=== PATIENT | female | born 1970 | race Caucasian/White ===

== ENCOUNTER 2024-09-24 09:32 | Emergency (ER) | payer MEDICAID, SELFPAY ==
--- NOTE | ~2024-09-24 | XR_ITS ---
XR forearm RT 2V Ordering provider: Larry Johnson MD History: . cat bite pain . Comparison: None. FINDINGS: BONES: No acute fracture or dislocation. JOINT SPACES: Normal. SOFT TISSUES: Normal. IMPRESSION: No acute osseous abnormality right forearm. Reviewed, dictated and finalized at location A.
--- NOTE | ~2024-09-24 | XR_ITS ---
XR elbow RT min 3V Ordering provider: Larry Johnosn MD History: . cat bite pain several puncture wounds to hand and forearm . Comparison: None. FINDINGS: BONES: No acute fracture or dislocation. JOINT SPACES: Normal. SOFT TISSUES: Unremarkable. No definite joint effusion. IMPRESSION: No acute osseous abnormality of the right elbow. Reviewed, dictated and finalized at location A.
[2024-09-24 09:32] VITALS: BP 136/70; PULSE 95; RESP 18; TEMP 36.2; O2SAT 97
--- NOTE | 2024-09-24 09:40 | ED.GENADULT ---
HPI - General Adult General Chief complaint: Animal Bite Stated complaint: cat bite Time Seen by Provider: 09/24/24 09:40 History of Present Illness HPI narrative: 54-year-old white female joint to break up a cat fight has puncture wounds to her thigh and her right forearm also complains of bilateral ear congestion and sinus congestion. patient history the CT the cat attacked her scratching her legs hands biting or hands and right thigh and forearm. Tetanus immunization given to patient. Patient is complaining of right elbow and forearm pain. Denies any numbness or loss of function. She is walking talking seeing and hearing okay she has had a little bit of a nonproductive cough postnasal drip and sometimes of runny nose. She complains of sinus congestion pain in her face over sinuses and congestion in her ears. She feels like there is fluid behind her left ear. Denies any other injuries any other bleeding or bruising lumps or bumps or swelling, numbness or weakness dizziness or lightheadedness or any other complaints. Related Data Allergies Allergy/AdvReac Type Severity Reaction Status Date / Time No Known Allergies Allergy Verified 09/24/24 09:40 Review of Systems Review of Systems: All systems reviewed & are unremarkable except as noted in HPI and below PMFSH Comments Past medical history anxiety depression Exam Narrative: White female patient with mild distress.? Head normocephalic, atraumatic,. Patient has facial tenderness over sinuses.? Eyes conjunctiva pink sclera nonicteric.? Extraocular movements are intact.? Ears externally normal. right canal cerumen impaction left canal. Tympanic membrane looks little inflamed. ?Oropharynx is clear with moist mucous membranes without exudates.? Neck is supple nontender no lymphadenopathy.? Back is nontender.? Lungs are clear.? Heart is regular rate and rhythm without murmurs gallops or rubs.? Chest wall nontender. Abdomen is soft and nontender no hepatosplenomegaly or masses no CVA tenderness no abdominal bruits.? Extremities : She has several puncture wounds or right forearm and both hands scratches on her legs and puncture wounds on her right thigh are mildly tender. She has no cyanosis clubbing or edema.? Skin is warm and dry without rashes or lesions.? Neurological patient is alert and oriented x4.? Motor and sensory grossly intact.? Gait is normal. Course Vital Signs Vital signs: Vital Signs Temperature 36.2 C L 03/18/25 09:32 Pulse Rate 95 09/24/24 09:32 Respiratory Rate 18 09/24/24 09:32 Blood Pressure 136/70 09/24/24 09:32 Pulse Oximetry 97 09/24/24 09:32 Oxygen Delivery Room Air 09/24/24 09:32 Temperature 36.2 C L 09/24/24 09:32 Pulse Rate 65 09/24/24 11:49 Respiratory Rate 14 09/24/24 11:49 Blood Pressure 118/71 09/24/24 11:49 Pulse Oximetry 99 09/24/24 11:49 Oxygen Delivery Room Air 09/24/24 11:49 Medical Decision Making MDM Narrative Medical decision making narrative: Patient placed in room: Seven with her ? History and physical was performed. x-ray of the right elbow and forearm bones showed no active disease per radiologist Independent Historian: External Source Review: Differential Dx includes but not limited to: sinusitis cat bite fracture dislocation Medications were Reviewed: home meds reviewed Medications given: Steri-Strips to right forearm cat bite. Tdap Toradol 30 Independently Interpreted by me: Shared decision Making: evaluation was discussed all questions were asked and answered patient agreed plan. She will take Augmentin twice a day for 10 days. She would return if she got any signs of infection. She took Tylenol and or ibuprofen for pain. Tylenol ibuprofen for pain Augmentin 875 twice a day for 10 days Claritin 10 mg pvlz-kaf-rcoptqk for 10 days, use ear wax removal kit after 3 days of putting mineral oil or baby oil in the right ear canal overnight. Social Situation Impacting Patients Care: Discussed with Dr. BROWN DIAGNOSIS: cat bite to extremities, URI, cerumen impaction DISPOSITION : discharged home stable CONDITION AT DISCHARGE: Stable Vital Signs Vital Signs: Vital Signs Temperature 36.2 C L 09/24/24 09:32 Pulse Rate 95 09/24/24 09:32 Respiratory Rate 18 09/24/24 09:32 Blood Pressure 136/70 09/24/24 09:32 Pulse Oximetry 97 09/24/24 09:32 Oxygen Delivery Room Air 09/24/24 09:32 Temperature 36.2 C L 09/24/24 09:32 Pulse Rate 65 09/24/24 11:49 Respiratory Rate 14 09/24/24 11:49 Blood Pressure 118/71 09/24/24 11:49 Pulse Oximetry 99 09/24/24 11:49 Oxygen Delivery Room Air 09/24/24 11:49 Discharge Plan Discharge Clinical Impression: Cat bite involving extremity, Acute upper respiratory infection Cerumen impaction Qualifiers: Laterality: right Qualified Code(s): H61.21 - Impacted cerumen, right ear Patient Disposition: Home, Self-Care Condition: Stable Instructions: Antibiotic Form, Animal Bite (ED), Upper Respiratory Infection (ED) Additional Instructions: Augmentin 875 twice a day for 10 days. Claritin 10 mg [id number]-jtw-wsjyoyr once a day for 10 days. Follow-up with your primary care provider. Use baby while mineral oil in the right ear canal at night as discussed the next 3 nights and then get an nnqh-swp-hnmhlow ear wash kit and use or have your primary care provider rinse out your ear canal. return if you get worse or develops any new symptoms. Patient Language: Trinidadian Prescriptions: New amoxicillin-pot clavulanate 875-125 mg tablet 1 tablet PO Q12H 10 Days Qty: 20 0RF Follow-up/Referrals: UNKNOWN,DOCTOR [Primary Care Provider] - Time of Disposition: 11:50
[2024-09-24] MEDS: TETANUS,DIPHTHERIA,AC PERTUSSIS ADULT 0.5 ML (ADACEL) IM (10:07)
--- OUTSIDE RECORDS SUMMARY | 2024-09-24 10:31 | XMS_ITS | Clinical Summary ---
Author Organization [facility] Address [address] [place] [address] Phone Care Team Providers Care Hose Sprayer Name Role Phone Carlos Alberto Rodriguez MD Unavailable Provider, None Primary Care Provider Unavailabl e Allergies No known active allergies Medications Fluticasone Propionate (FLONASE NA) by Nasal route. Active OMEPRAZOLE PO Take by mouth. Active vitamin D (CHOLECALCIFEROL ) 1000 UNIT Tablet Take 1,000 Units by mouth. Active albuterol 108 (90 Base) MCG/ACT Aerosol Solution take 2 Puffs by inhalation. Active FLUoxetine (PROZAC) 40 MG Capsule TAKE 2 CAPSULES BY MOUTH DAILY 90 Cap 1 9 Active traZODone (DESYREL) 50 MG Tablet 50 mg. 0 Active LATUDA 20 MG Tablet 20 mg. 0 Active hydrOXYzine (VISTARIL) 25 MG Capsule Take 25 mg by mouth. Active prazosin (MINIPRESS) 2 MG Capsule 2 mg. 0 Active nabumetone (RELAFEN) 500 MG Tablet TAKE 1 TABLET BY MOUTH TWICE DAILY FOR 15 DAYS 30 Tab 0 Active tiZANidine (ZANAFLEX) 2 MG Tablet TAKE 2 TABLETS BY MOUTH THREE TIMES DAILY 60 Tab 0 Active clonazePAM (KlonoPIN) 0.5 MG TabletIndication s:Anxiety and depression,Sacro iliac dysfunction,Troc hanteric bursitis of both hips,Arthralgia, unspecified joint Take 1 Tab by mouth nightly. 30 Tab 0 Active Active Problems Problem Noted Date Diagnosed Date Chronic constipation 08/09/2018 Mild intermittent asthma without complication Tobacco abuse 08/09/2018 Obesity (BMI 30-39.9) 08/09/2018 Anxiety and depression Endometriosis Trichotillomania Family History Medical History Relation Name Comments Diabetes Maternal Grandfather Heart Disease Maternal Grandfather Stomach Cancer Maternal Grandmother Stomach Cancer Maternal Uncle Aneurysm Mother Relation Name Status Comments Maternal Grandfather Maternal Grandmother Maternal Uncle Mother Social History Tobacco Use Types Packs/Day Years Used Date Smoking Tobacco: Every Day Cigarettes Smokeless Tobacco: Never Tobacco Cessation:Ready to Q uit: No; Counseling Given: Yes Alcohol Use Standard Drinks/Week Comments Yes 0 (1 standard drink = 0.6 oz pur e alcohol) occasional PHQ-2 Answer Date Recorded Total Score - Questions 1-9 0 12/09 Comments Unknown Sex and Gender Information Value Date Recorded Sex Assigned at Not on file Legal Sex Female 9:49 AM CDT Gender Identity Not on file Sexual Orientation Not on file Last Filed Vital Signs Vital Sign Reading Time Taken Comments Blood Pressure 104/70 07/04/2019 8:43 AM HIGH PRESSURE CLEANER Pulse 82 07/04/2019 8:43 AM HIGH PRESSURE CLEANER Temperature - - Respiratory Rate - - Oxygen Saturation 97% 07/04/2019 8:43 AM HIGH PRESSURE CLEANER Inhaled Oxygen Concentration - - Weight 89.8 kg (198 lb) 07/04/2019 8:43 AM HIGH PRESSURE CLEANER Height 165.1 cm (5' 5 ) 02/07/2019 12:13 PM CDT Body Mass Index 32.95 02/07/2019 12:13 PM CDT Plan of Treatment Health Maintenance Due Date Last Done Comments Hepatitis C Virus (HCV) Screening 1970 TdaP Immunization 1970 Pneumococcal Immunization Co mbined (1 of 2 - PCV) 1976 Hepatitis B Immunization (1 of 3 - 19+ 3-dose series) 1989 Pneumococcal Immunization (5 0+ years) (1 of 2 - PCV) 1989 Pap Smear 1991 Cervical Cancer Screening (CCS) 2000 HPV/Cotest 2000 Colonoscopy 2015 Colorectal Cancer Screening 2015 Cologuard 2020 Immunochemical Fecal Occult Blood 2020 Zoster Immunization (1 of 2) 2020 Influenza Immunization (#1) 2024 04/06/2019 SARS-COV-2 Immunization ( - 2023- season) 2024 Respiratory Syncytial Virus (RSV) Immunization (Adult) (1 - 1-dose 75+ series) 2045 Discussion re Starting/Frequ ency of Mammograms Discontinued 08/17/2018 Mammogram Discontinued 08/17/2018 Meningococcal Immunization (ACWY) Aged Out No longer eligible based on patient's age to complete this topic Rotavirus Immunization Aged Out No lo nger eligible based on patient's age to complete this topic Procedures Procedure Name Priority Date/Time Associated Diagnosis Comments [facility] DIAG BILATERAL DIGITAL W CAD W KATTY Routine 08/17/2018 10:14 AM HIGH PRESSURE CLEANER Breast pain, right from Last 3 Months or Most Recently Relevant to Health Maintenance Results * [facility] DIAG BILATERAL DIGITAL W CAD W KATTY (08/17/2018 10:14 AM HIGH PRESSURE CLEANER) Anatomical Region Laterality Modality breast Bilateral Mammography 08/17/2018 10:5 4 AM HIGH PRESSURE CLEANER Narrative 08/20/2018 4:28 PM HIGH PRESSURE CLEANER ORDERING PHYSICIAN Edward Ramirez MD DATE AND TIME OF DICTATION RADIOLOGIST 08/17/2018 10:54:24 Terra Michel MD EXAM DESCRIPTION EXAMINATION Diagnostic bilateral digital mammogram with CAD and tomosynthesis. HISTORY A 48-year-old female presenting right breast tenderness. TECHNIQUE Full field CC and MLO views of both breasts were obtained with CAD over-read. In addition, tomosynthesis of the right breast was performed in the CC and MLO projections. COMPARISON None available. FINDINGS There is fatty replacement of the glandular tissue. No suspicious mass, grouping of calcifications, or architectural distortion. There is no skin thickening or nipple retraction. No abnormality is seen on the tomosynthesis views. ASSESSMENT BI-RADS 0, incomplete. RECOMMENDATIONS The patient will undergo a targeted ultrasound of the right breast for further evaluation. Please refer to the ultrasound report for final recommendations. DICTATED BY: Terra Michel MD DD/MODL /[id number] Edward Ramirez MD IMG MAMMO ORDERABLES Final R esult from Last 3 Months or Most Recently Relevant to Health Maintenance Insurance MEDICAID [employer] Care Teams Hose Sprayer Relationship Specialty Start Date End Date Provider, None [place] PCP - General 05/19/20 Carlos Alberto Rodriguez MD [address] [address] Consulting Physician General Surgery 08/17/18
--- OUTSIDE RECORDS SUMMARY | 2024-09-24 10:31 | XMS_ITS | Encounter Summary ---
Author Organization [facility] Address [address] [place] [address] Phone Care Team Providers Care Parts Cleaner Name Role Phone Carlos Alberto Rodriguez MD Unavailable Yeni Kennedy MD Primary Care Provider [phone] Provider, None Primary Care Provider Unavailabl e Reason for Visit * Reason Comments Medication Refill Encounter Details Date Type Department Care Team ([facility] Contact Info) Description 10/31/2019 Refill [facility] [address] [place] [address] Yeni Kennedy MD [address] [place] [address] Medication Refill Social History Tobacco Use Types Packs/Day Years Used Date Smoking Tobacco: Every Day Cigarettes Smokeless Tobacco: Never Alcohol Use Standard Drinks/Week Comments Yes 0 (1 standard drink = 0.6 oz pur e alcohol) occasional PHQ-2 Answer Date Recorded PHQ-2 Score 0 07/04/2019 Comments Unknown Sex and Gender Information Value Date Recorded Sex Assigned at Not on file Legal Sex Female 9:49 AM CDT Gender Identity Not on file Sexual Orientation Not on file COVID-19 Exposure Response Date Recorded In the last month, have you been in contact with someone who was confirmed or suspected to have Coronavirus / COVID-19? Yes 10/02/2019 9:05 AM CDT documented as of this encounter Miscellaneous Notes * Telephone Encounter - Jennifer Russell MA - 10/31/2019 10:08 AM CDT Requested Prescriptions Pending Prescriptions Disp Refills ??? naproxen (NAPROSYN) 500 MG Tablet [Pharmacy Med Name: NAPROXEN 500MG TABLETS] 60 Tab 1 Sig: TAKE 1 TABLET BY MOUTH TWICE DAILY WITH MEALS documented in this encounter Plan of Treatment Not on file documented as of this encounter Visit Diagnoses Not on filedocumented in this encounter Additional Health Concerns Assessment Noted Time PHQ-9 Depression Total Score: 0 07/04/20 19 8:00 AM [employer] WORK[employer] documented as of this encounter Care Teams Parts Cleaner Relationship Specialty Start Date End Date Yeni Kennedy MD [address] [place] [address] PCP - General Family Medicine 11/05/18 05/18/20 Provider, None [place] PCP - General 05/19/20 Carlos Alberto Rodriguez MD [address] [place] [address] [address] [place] [address] [id number] Consulting Physician General Surgery 08/17/18 documented as of this encounter
--- OUTSIDE RECORDS SUMMARY | 2024-09-24 10:31 | XMS_ITS | Encounter Summary ---
Author Organization [facility] Address [address] [place] [address] Phone Care Team Providers Care Typist Name Role Phone Carlos Alberto Rodriguez MD Unavailable Yeni Kennedy MD Primary Care Provider [phone] Provider, None Primary Care Provider Unavailabl e Reason for Visit * Reason Comments Medication Refill Encounter Details Date Type Department Care Team ([facility] Contact Info) Description 03/19/2020 Refill [facility] [address] [place] [address] Yeni Kennedy MD [address] [place] [address] Medication Refill Social History Tobacco [...] on file Sexual Orientation Not on file documented as of this encounter Miscellaneous Notes * Telephone Encounter - Jennifer Russell MA - 03/19/2020 10:57 AM CDT Requested Prescriptions Pending Prescriptions Disp Refills ??? tiZANidine (ZANAFLEX) 2 MG Tablet [Pharmacy Med Name: TIZANIDINE 2MG TABLETS] 60 Tab 0 Sig: TAKE 2 TABLETS BY MOUTH THREE TIMES DAILY documented in this encounter Plan of Treatment Not on file documented as of this encounter Visit Diagnoses Not on filedocumented in this encounter Additional Health Concerns Assessment Noted Time PHQ-9 Depression Total Score: 0 12/31/19 20 10:00 AM CDT documented as of this encounter Care Teams Typist Relationship Specialty Start Date End Date Yeni Kennedy MD [address] [place] [address] PCP - General Family Medicine 11/05/18 05/18/20 Provider, None [place] PCP - General 05/19/20 Carlos Alberto Rodriguez MD [address] [place] [address] Consulting Physician General Surgery 08/17/18 documented as of this encounter
--- OUTSIDE RECORDS SUMMARY | 2024-09-24 10:31 | XMS_ITS | Encounter Summary ---
Author Organization [facility] Address [address] [place] [address] Phone Care Team Providers Care Fish Dressing Machine Feeder Name Role Phone Carlos Alberto Rodriguez MD Unavailable Yeni Kennedy MD Primary Care Provider [phone] Provider, None Primary Care Provider Unavailabl e Reason for Visit * Reason Comments Medication Refill Encounter Details Date Type Department Care Team ([facility] Contact Info) Description 03/16/2020 Refill [facility] [address] [place] [address] Yeni Kennedy MD [address] [place] [address] Medication Refill Social History Tobacco [...] Telephone Encounter - Jennifer Russell MA - 03/17/2020 8:37 AM CDT Requested Prescriptions Pending Prescriptions Disp Refills ??? nabumetone (RELAFEN) 500 MG Tablet [Pharmacy Med Name: NABUMETONE 500MG TABLETS] 30 Tab 0 Sig: TAKE 1 TABLET BY MOUTH TWICE DAILY FOR 15 DAYS documented in this encounter Plan of Treatment Not on file documented as of this encounter Visit Diagnoses Not on filedocumented in this encounter Additional Health Concerns Assessment Noted Time PHQ-9 Depression Total Score: 0 12/31/19 20 10:00 AM CDT documented as of this encounter Care Teams Fish Dressing Machine Feeder Relationship Specialty Start Date End Date Yeni Kennedy MD [address] [place] [address] PCP - General Family Medicine 11/05/18 05/18/20 Provider, None [place] PCP - General 05/19/20 Carlos Alberto Rodriguez MD [address] [place] [address] Consulting Physician General Surgery 08/17/18 documented as of this encounter
--- OUTSIDE RECORDS SUMMARY | 2024-09-24 10:31 | XMS_ITS | Encounter Summary ---
Author Organization [facility] Address [address] [place] [address] Phone Care Team Providers Care Pricing Analyst Name Role Phone Carlos Alberto Rodriguez MD Unavailable Yeni Kennedy MD Primary Care Provider [phone] Provider, None Primary Care Provider Unavailabl e Reason for Visit * Reason Comments Medication Refill Encounter Details Date Type Department Care Team ([facility] Contact Info) Description 12/28/2019 Refill [facility] [address] [place] [address] Yeni Kennedy MD [address] [place] [address] Medication Refill Social History Tobacco [...] or suspected to have Coronavirus / COVID-19? No / Unsure 12/30/2019 9:54 AM CDT documented as of this encounter Miscellaneous Notes * Telephone Encounter - Justice, Jennifer I, MA - 12/30/2019 8:32 AM CDT Requested Prescriptions Pending Prescriptions Disp [...] Total Score: 0 07/04/20 19 8:00 AM CAR HIKER documented as of this encounter Care Teams Pricing Analyst Relationship Specialty Start Date End Date Yeni Kennedy MD [address] [place], [place] [id number] PCP - General Family Medicine 11/05/18 05/18/20 Provider, None [place] PCP - General 05/19/20 Carlos Alberto Rodriguez MD [address] [place] [address] Consulting Physician General Surgery 08/17/18 documented as of this encounter
--- OUTSIDE RECORDS SUMMARY | 2024-09-24 10:31 | XMS_ITS | Clinical Summary ---
Author Organization [facility] Address [address] [place] [address] Care Team Providers Care Knot Picker Cloth Name Role Phone None, Provider MD Primary Care Provider Unavaila ble Allergies No known active allergies Medications naproxen 500 MG tablet Take 500 mg by mouth 2 (two) times daily as needed. Active clonazePAM 0.5 MG tablet Take 0.25-0.5 mg by mouth daily as needed. 05/28/2019 Active trazodone 50 MG tablet Take 25 mg by mouth nightly as needed for Sleep. Active hydrOXYzine 25 MG capsule Take 25 mg by mouth 3 (three) times daily as needed for Anxiety. Active clonazePAM (KLONOPIN) 0.5 MG tabletIndicatio ns:MDD (major depressive disorder) Take 1 tablet (0.5 mg total) by mouth 2 (two) times daily as needed for Anxiety. 30 tablet 02/27/2024 Active Active Problems Problem Noted Date Diagnosed Date MDD (major depressive disorder) 03/29/2019 Immunizations Name Administration Dates Next Due Afluria 36 MONTHS+ (Prefilled Syringe IIV4) 03/11 Family History Medical History Relation Comments Depression Mother Relation Status Comments Mother Social History Tobacco Use Types Packs/Day Years Used Date Smoking Tobacco: Every Day Cigarettes Smokeless Tobacco: Never Alcohol Use Standard Drinks/Week Comments Yes 0 (1 standard drink = 0.6 oz pur e alcohol) socially Comments No Sex and Gender Information Value Date Recorded Sex Assigned at Not on file Legal Sex Female 5:11 PM CDT Gender Identity Not on file Sexual Orientation Not on file Last Filed Vital Signs Vital Sign Reading Time Taken Comments Blood Pressure 118/75 05/01/2024 3:00 PM CDT Pulse 80 05/01/2024 3:00 PM CDT Temperature 36.9 C (98.4 F) 05/01/2024 10:23 AM CDT Respiratory Rate 16 05/01/2024 3:00 PM CDT Oxygen Saturation 99% 05/01/2024 3:00 PM CDT Inhaled Oxygen Concentration - - Weight 81.6 kg (180 lb) 05/01/2024 10:23 AM CDT Height 165.1 cm (5' 5 ) 05/01/2024 10:23 AM CDT Body Mass Index 29.95 05/01/2024 10:23 AM CDT Plan of Treatment Health Maintenance Due Date Last Done Comments Cervical Cancer Screening Pa p Smear (Age 30 to 64) Every 3 Years 1970 Colorectal Cancer Screening Colonoscopy (10 Years) 1970 Annual Physical 1973 Pneumococcal Vaccine: Pediat rics (0 to 5 Years) and At-Risk Patients (6 to 64 Years) (1 of 2 - PCV) 1976 Hepatitis C 1988 DTaP, Tdap and Td Vaccines ( 1 - Tdap) 1989 Hepatitis B Vaccines (1 of 3 - 19+ 3-dose series) 1989 Cervical Cancer Screening Pa p with HPV Testing (Age 30 to 64) Every 5 Years 2000 Cervical Cancer Screening with HPV 2000 Zoster Vaccines (1 of 2) 2020 Mammogram Screening 08/17/2020 08/17/2018 COVID-19 Vaccine (1 - 2023-2 5 season) 2024 Influenza Adult (#1) 2024 04/06/2019 Meningococcal B Vaccine Aged Out No l onger eligible based on patient's age to complete this topic Meningococcal Vaccine Aged Out No geoff alejandra eligible based on patient's age to complete this topic RSV Immunizations Under 20 Months Aged Out No longer eligible based on patient's age to complete this topic Insurance MEDICAID Advance Directives * Full Code (Latest Code Status on File) Date Activated Date Inactivated Comments 03/29/2019 8:49 PM 04/08/2019 1:39 PM Care Teams Knot Picker Cloth Relationship Specialty Start Date End Date None, Provider, MD PCP - General UNKNOWN PHYSICIAN SPECIALTY 05/01/24
--- OUTSIDE RECORDS SUMMARY | 2024-09-24 10:31 | XMS_ITS | Encounter Summary ---
Author Organization [facility] Address [address] [place] [address] Phone Care Team Providers Care Log Driver Name Role Phone Carlos Alberto Rodriguez MD Unavailable Yeni Kennedy MD Primary Care Provider [phone] Provider, None Primary Care Provider Unavailabl e Reason for Visit * Reason Comments Medication Refill Encounter Details Date Type Department Care Team ([facility] st Contact Info) Description 10/31/2019 Refill [facility] [address] [place] [address] Mulu Gonzalez, GEENA, PANEL EDGE PAINTER [address] [place] [address] Medication Refill Social History Tobacco Use Types [...] Encounter - Jennifer Russell MA - 10/31/2019 12:38 PM CDT Is this ok to refill? documented in this encounter Plan of Treatment Not on file documented as of this encounter Visit Diagnoses Diagnosis Sacroiliac dysfunction Disorders of sacrum Trochanteric bursitis of both hips Enthesopathy of hip region Arthralgia, unspecified joint documented in this encounter Additional Health Concerns Assessment Noted Time PHQ-9 Depression Total Score: 0 07/04/20 19 8:00 AM BULK SAUSAGE CASING TIER OFF documented as of this encounter Care Teams Log Driver Relationship Specialty Start Date End Date Yeni Kennedy MD [address] [place], [place] [phone] PCP - General Family Medicine 11/05/18 05/18/20 Provider, None [place] PCP - General 05/19/20 Carlos Alberto Rodriguez MD [address] [place] [id number] Consulting Physician General Surgery 08/17/18 documented as of this encounter
--- OUTSIDE RECORDS SUMMARY | 2024-09-24 10:31 | XMS_ITS | Encounter Summary ---
Author Organization [facility] Address [address] [place] [address] Phone Care Team Providers Care Manager House Name Role Phone Carlos Alberto Rodriguez MD Unavailable Yeni Kennedy MD Primary Care Provider [phone] Provider, None Primary Care Provider Unavailabl e Reason for Visit * Reason Comments Medication Refill Encounter Details Date Type Department Care Team ([facility] Contact Info) Description 02/02/2020 Refill [facility] FAMILY MEDICINE [address] [place] [address] Yeni Kennedy MD [address] [place] [address] Medication Refill Social History Tobacco [...] Telephone Encounter - Jennifer Russell MA - 02/03/2020 8:00 AM CDT Requested Prescriptions Pending Prescriptions Disp Refills ??? nabumetone (RELAFEN) 500 MG Tablet [Pharmacy Med Name: NABUMETONE 500MG TABLETS] 30 Tab 0 Sig: TAKE 1 TABLET BY MOUTH TWICE DAILY FOR 15 DAYS ??? tiZANidine (ZANAFLEX) 2 MG Tablet [Pharmacy [...] documented as of this encounter Care Teams Manager House Relationship Specialty Start Date End Date Yeni Kennedy MD [address] [place] [address] PCP - General Family Medicine 11/05/18 05/18/20 Provider, None [place] PCP - General 05/19/20 Carlos Alberto Rodriguez MD [address] [place] [address] Consulting Physician General Surgery 08/17/18 documented as of this encounter
--- OUTSIDE RECORDS SUMMARY | 2024-09-24 10:32 | XMS_ITS | Clinical Summary ---
Author Organization [facility] Address [address] [place] [address] Care Team Providers Care Art Teacher Name Role Phone Unavailable Primary Care Provider Unavailabl e Source Comments PLEASE NOTE, if this patient is a minor, it may be UNLAWFUL to discuss sensitive information that is contained in these records (such as FAMILY PLANNING, MENTAL HEALTH or SUBSTANCE ABUSE) with the minor patient's parent or other person without the patient's specific authorization.[facility] Allergies No known active allergies Medications ibuprofen (ADVIL,MOTRIN) 200 mg tablet Take 800 mg by mouth 2 (two) times daily Active FLUoxetine (PROZAC) 40 mg capsule TK 2 CS PO D 2 02/21/2017 Active hydrOXYzine HCl (ATARAX) 50 mg tablet TK 1 T PO PRN 2 02/21/2017 Active methylPREDNIsol one (MEDROL DOSPACK) 4 mg tablet packIndications :Pain in joint, multiple sites Follow package directions. 1 Packet 03/27/2017 Active Active Problems Problem Noted Date Diagnosed Date Tendonitis of ankle or foot 03/28/2017 Social History Tobacco Use Types Packs/Day Years Used Date Smoking Tobacco: Every Day Cigarettes Smokeless Tobacco: Never Alcohol Use Standard Drinks/Week Comments Yes 0 (1 standard drink = 0.6 oz pur e alcohol) occasional Social Connections Answer Date Recorded Social Connections and Isolation 0 03/03/2019 Financial Resource Strain Answer Date R ecorded Financial Resource Strain 0 2018 Stress Answer Date Recorded Stress 0 03/03/2019 Physical Activity Answer Date Recorded Physical Activity 0 03/03/2019 Food Insecurity Answer Date Recorded Food 0 03/03/2019 Transportation Needs Answer Date Record ed Transportation 0 03/03/2019 Housing Stability Answer Date Recorded Housing 0 03/03/2019 Safety and Environment Answer Date Nj rded Safety 0 03/03/2019 Utilities Answer Date Recorded Utilities 0 03/03/2019 Employment Answer Date Recorded Employment 0 03/03/2019 Comments No Sex and Gender Information Value Date Recorded Sex Assigned at Not on file Legal Sex Female 6:55 PM PDT Gender Identity Not on file Sexual Orientation Not on file Last Filed Vital Signs Vital Sign Reading Time Taken Comments Blood Pressure 108/72 03/27/2017 7:27 PM PDT Pulse 61 03/27/2017 7:27 PM PDT Temperature 36.9 C (98.4 F) 03/27/2017 7:27 PM PDT Respiratory Rate - - Oxygen Saturation - - Inhaled Oxygen Concentration - - Weight - - Height 165.1 cm (5' 5 ) 03/27/2017 7:27 PM PDT Body Mass Index - - Plan of Treatment Not on file
[2024-09-24] MEDS: KETOROLAC 30 MG/ML VIAL (*BKC) IM (11:00)
--- OUTSIDE RECORDS SUMMARY | 2024-09-24 11:18 | XMS_ITS | Clinical Summary ---
Author Organization [facility] Address [address] [place] [address] Care Team Providers Care Storage Specialist Name Role Phone Unavailable Primary Care Provider [...]
--- OUTSIDE RECORDS SUMMARY | 2024-09-24 11:18 | XMS_ITS | Encounter Summary ---
Author Organization [facility] Address [address] [place] [address] Phone Care Team Providers Care Real Estate Office Supervisor Name Role Phone Carlos Alberto Rodriguez MD Unavailable Yeni Kennedy MD Primary Care Provider [phone] Provider, None Primary Care Provider Unavailabl e Reason for Visit * Reason Comments Medication Refill Encounter Details Date Type Department Care Team ([facility] Contact Info) Description 12/28/2019 Refill [facility] FAMILY MEDICINE [address] [place] [address] Yeni Kennedy MD [address] [place] [address] Medication Refill Social History Tobacco [...] Total Score: 0 07/04/20 19 8:00 AM MARKETING DATABASE COORDINATOR documented as of this encounter Care Teams Real Estate Office Supervisor Relationship Specialty Start Date End Date Yeni Kennedy MD [address] [place], [place] [id number] PCP - General Family Medicine 11/05/18 05/18/20 Provider, None [place] PCP - General 05/19/20 Carlos Alberto Rodriguez MD [address] [place] [address] Consulting Physician General Surgery 08/17/18 documented as of this encounter
--- OUTSIDE RECORDS SUMMARY | 2024-09-24 11:18 | XMS_ITS | Encounter Summary ---
Author Organization [facility] Address [address] [place] [address] Phone Care Team Providers Care Chief Science Officer Name Role Phone Carlos Alberto Rodriguez MD Unavailable Yeni Kennedy MD Primary Care Provider [phone] Provider, None Primary Care Provider Unavailabl e Reason for Visit * Reason Comments Medication Refill Encounter Details Date Type Department Care Team ([facility] Contact Info) Description 03/19/2020 Refill [facility] FAMILY MEDICINE [address] [place] [address] Yeni Kennedy MD [address] [place] [address] Medication Refill Social History Tobacco [...] documented as of this encounter Care Teams Chief Science Officer Relationship Specialty Start Date End Date Yeni Kennedy MD [address] [place] [address] PCP - General Family Medicine 11/05/18 05/18/20 Provider, None [place] PCP - General 05/19/20 Carlos Alberto Rodriguez MD [address] [address] [facility] [address] [place] [address] Consulting Physician General Surgery 08/17/18 documented as of this encounter
--- OUTSIDE RECORDS SUMMARY | 2024-09-24 11:18 | XMS_ITS | Encounter Summary ---
Author Organization [facility] Address [address] [place] [address] Phone Care Team Providers Care Dock Operations Supervisor Name Role Phone Carlos Alberto Rodriguez MD Unavailable Yeni Kennedy MD Primary Care Provider [phone] Provider, None Primary Care Provider Unavailabl e Reason for Visit * Reason Comments Medication Refill Encounter Details Date Type Department Care Team ([facility] Contact Info) Description 03/16/2020 Refill [facility] FAMILY MEDICINE [address] [place] [address] Yeni Kennedy MD [address] [place] [address] Medication Refill Social History Tobacco [...] documented as of this encounter Care Teams Dock Operations Supervisor Relationship Specialty Start Date End Date Yeni Kennedy MD [address] [place] [address] PCP - General Family Medicine 11/05/18 05/18/20 Provider, None [place] PCP - General 05/19/20 Carlos Alberto Rodriguez MD [address] [facility] [address] [place] [address] [place] [address] Consulting Physician General Surgery 08/17/18 documented as of this encounter
--- OUTSIDE RECORDS SUMMARY | 2024-09-24 11:18 | XMS_ITS | Clinical Summary ---
Author Organization [facility] Address [address] [place] [address] Care Team Providers Care Heavy Truck Driver Name Role Phone None, Provider MD Primary [...] 8:49 PM 04/08/2019 1:39 PM Care Teams Heavy Truck Driver Relationship Specialty Start Date End Date None, Provider, MD PCP - General UNKNOWN PHYSICIAN SPECIALTY 05/01/24
--- OUTSIDE RECORDS SUMMARY | 2024-09-24 11:18 | XMS_ITS | Clinical Summary ---
Author Organization [facility] Address [address] [address] Phone Care Team Providers Care Oil Pump Station Operator Chief Name Role Phone Carlos Alberto Rodriguez MD [...] Comments Blood Pressure 104/70 07/04/2019 8:43 AM RN TELEMETRY Pulse 82 07/04/2019 8:43 AM RN TELEMETRY Temperature - - Respiratory Rate - - Oxygen Saturation 97% 07/04/2019 8:43 AM RN TELEMETRY Inhaled Oxygen Concentration - - Weight 89.8 kg (198 lb) 07/04/2019 8:43 AM RN TELEMETRY Height 165.1 cm (5' 5 ) 02/07/2019 [...] Procedure Name Priority Date/Time Associated Diagnosis Comments [facility] BIL[facility]AL DIGITAL W CAD W KATTY Routine 08/17/2018 10:14 AM RN TELEMETRY Breast pain, right from Last 3 Months or Most Recently Relevant to Health Maintenance Results * [facility]IL[facility] DIGITAL W CAD W KATTY (08/17/2018 10:14 AM RN TELEMETRY) Anatomical Region Laterality Modality breast Bilateral Mammography 08/17/2018 10:5 4 AM RN TELEMETRY Narrative 08/20/2018 4:28 PM RN TELEMETRY ORDERING PHYSICIAN Edward Ramirez MD DATE AND [...] recommendations. DICTATED BY: Terra Michel MD DD/MODL /[id number] Edward Ramirez MD IMG MAMMO ORDERABLES Final R esult from Last 3 Months or Most Recently Relevant to Health Maintenance Insurance MEDICAID [employer] Care Teams Oil Pump Station Operator Chief Relationship Specialty Start Date End Date Provider, None [place] PCP - General 05/19/20 Carlos Alberto Rodriguez MD [address] [address] Consulting Physician General Surgery 08/17/18
--- OUTSIDE RECORDS SUMMARY | 2024-09-24 11:18 | XMS_ITS | Encounter Summary ---
Author Organization [facility] Address [address] [place] [address] Phone Care Team Providers Care Bean Roaster Name Role Phone Carlos Alberto Rodriguez MD Unavailable Yeni Kennedy MD Primary Care Provider [phone] Provider, None Primary Care Provider Unavailabl e Reason for Visit * Reason Comments Medication Refill Encounter Details Date Type Department Care Team ([facility] Contact Info) Description 10/31/2019 Refill [facility] FAMILY MEDICINE [address] [place] [address] Yeni Kennedy MD [address] [place] [address] Medication Refill Social History Tobacco [...] Total Score: 0 07/04/20 19 8:00 AM PRIMARY HEALTH CARE NURSE documented as of this encounter Care Teams Bean Roaster Relationship Specialty Start Date End Date Yeni Kennedy MD [address] [place] [address] PCP - General Family Medicine 11/05/18 05/18/20 Provider, None [place] PCP - General 05/19/20 Carlos Alberto Rodriguez MD [address] [place] [address] [address] [place] [id number] Consulting Physician General Surgery 08/17/18 documented as of this encounter
--- OUTSIDE RECORDS SUMMARY | 2024-09-24 11:18 | XMS_ITS | Encounter Summary ---
Author Organization [facility] Address [address] [place] [address] Phone Care Team Providers Care Slide Fastener Chain Assembler Name Role Phone Carlos Alberto Rodriguez MD Unavailable Yeni Kennedy MD Primary Care Provider [phone] Provider, None Primary Care Provider Unavailabl e Reason for Visit * Reason Comments Medication Refill Encounter Details Date Type Department Care Team ([facility] Contact Info) Description 02/02/[address] [facility] FAMILY MEDICINE [address] [place] [address] Yeni Kennedy MD [address] [place] [address] Medication Refill Social History Tobacco [...] documented as of this encounter Care Teams Slide Fastener Chain Assembler Relationship Specialty Start Date End Date Yeni Kennedy MD [address] [place] [address] PCP - General Family Medicine 11/05/18 05/18/20 Provider, None [place] PCP - General 05/19/20 Carlos Alberto Rodriguez MD [address] [place] [address] Consulting Physician General Surgery 08/17/18 documented as of this encounter
--- OUTSIDE RECORDS SUMMARY | 2024-09-24 11:18 | XMS_ITS | Encounter Summary ---
Author Organization [facility] Address [address] [place] [address] Phone Care Team Providers Care Grader Meat Name Role Phone Carlos Alberto Rodriguez MD Unavailable Yeni Kennedy MD Primary Care Provider [phone] Provider, None Primary Care Provider Unavailabl e Reason for Visit * Reason Comments Medication Refill Encounter Details Date Type Department Care Team ([facility] st Contact Info) Description 10/31/2019 Refill [facility] FAMILY MEDICINE [address] [place] [address] Mulu Gonzalez, GEENA, NAIL KEGGER [address] [place] [address] Medication Refill Social History Tobacco [...] Total Score: 0 07/04/20 19 8:00 AM NAPPING MACHINE OPERATOR documented as of this encounter Care Teams Grader Meat Relationship Specialty Start Date End Date Yeni Kennedy MD [address] [place], [place] [id number] PCP - General Family Medicine 11/05/18 05/18/20 Provider, None [place] PCP - General 05/19/20 Carlos Alberto Rodriguez MD [address] [place] [address] Consulting Physician General Surgery 08/17/18 documented as of this encounter
[2024-09-24 11:49] VITALS: BP 118/71; PULSE 65; RESP 14; O2SAT 99
[2024-09-24 11:55] VITALS: TEMP 36.6
== END 2024-09-24 11:55 | disposition home or self-care (01) ==
PROVIDERS: Emergency Provider Emergency Medicine
DX: S71.131A Puncture wound without foreign body, right thigh, initial encounter (principal); S51.831A Puncture wound without foreign body of right forearm, initial encounter; W55.01XA Bitten by cat, initial encounter; J06.9 Acute upper respiratory infection, unspecified; H61.21 Impacted cerumen, right ear; Z23 Encounter for immunization
CPT/HCPCS: 73080; 73090; 90471; 90715; 96372; 99283; J1885